=== PATIENT | male | born 1975 | race Caucasian/White ===

== ENCOUNTER → 2021-09-10 | Outpatient (CLI) | payer BC | LOC: COL.RAD 10:00 | DX: K76.89 Other specified diseases of liver (principal) ==

== ENCOUNTER → 2022-01-14 | Outpatient (CLI) | payer BC | LOC: COL.RAD 10:58 | DX: K74.60 Unspecified cirrhosis of liver (principal); R16.1 Splenomegaly, not elsewhere classified | CPT/HCPCS: Q9967 ==

== ENCOUNTER → 2024-01-22 | Outpatient (CLI) | payer BC ==
[~2024-01-22] MED LIST: [UNRECOGNIZED DRUG - OTHER] IV SCH
== END ==
LOC: COL.RAD 12:57
DX: K70.31 Alcoholic cirrhosis of liver with ascites (principal); K80.20 Calculus of gallbladder without cholecystitis without obstruction; R16.1 Splenomegaly, not elsewhere classified; K73.9 Chronic hepatitis, unspecified; R77.2 Abnormality of alphafetoprotein; K76.6 Portal hypertension
CPT/HCPCS: A9581